=== PATIENT | male | born 1990 | race Asian ===

== ENCOUNTER 2020-04-13 13:45 | Emergency (ER) | payer MEDICAID ==
[~2020-04-13] VITALS: Ht 185.4 cm; Wt 77.1 kg
--- NOTE | 2020-04-13 14:06 | NUR ---
[email or web address], medical screening exam in progress
[2020-04-13] MEDS ORDERED: TDAP DIPH,PERTUSS,TET VAC/PF 0.5 ML DISP.SYRIN IM ONE ×2 (15:00→15:07)
[2020-04-13] MEDS ORDERED: NEOMY/BACITRA/POLYMYXIN B OINT UD PACKET TP ONE ×2 (15:15→15:18)
[2020-04-13] MEDS ORDERED: CEphaleXIN 250 MG CAPSULE PO ONE (15:15)
--- NOTE | 2020-04-13 15:17 | NUR ---
Patient discharged to home in stable condition. Written and verbal after care instructions given to patient. Patient verbalized understanding & compliance of instructions. Stressed follow up to come back to ER tomorrow so Dr Kay can recheck the wound or see your primary doctor or return to ER for worsening s/s.
[2020-04-13] MEDS ORDERED: CEphaleXIN 250 MG CAPSULE ONE (15:18)
== END 2020-04-13 15:17 | disposition home or self-care (01) ==
LOC: ER 13:49
DX: S60.450A Superficial foreign body of right index finger, initial encounter (principal); L08.9 Local infection of the skin and subcutaneous tissue, unspecified; W45.8XXA Other foreign body or object entering through skin, initial encounter; Y93.89 Activity, other specified; Y92.89 Other specified places as the place of occurrence of the external cause
CPT/HCPCS: 73140; 90715; A4663

== ENCOUNTER 2020-04-14 12:35 | Emergency (ER) | payer MEDICAID ==
[~2020-04-14] VITALS: Ht 185.4 cm; Wt 77.1 kg
--- NOTE | 2020-04-14 12:43 | NUR ---
Dr Kay at the bedside for MSE.
[2020-04-14] MEDS ORDERED: SULFAMETH/TRIMETH 800/160 MG TABLET PO ONE (12:45)
[2020-04-14] MEDS ORDERED: SULFAMETH/TRIMETH 800/160 MG TABLET ONE (12:52)
--- NOTE | 2020-04-14 12:54 | NUR ---
Patient discharged to home in stable condition. Written and verbal after care instructions given. Patient verbalizes understanding of instructions. Stressed follow up or return to ER for worsening s/s.
[2020-04-14 12:56] VITALS: BP 120/70
== END 2020-04-14 13:03 | disposition home or self-care (01) ==
LOC: ER 12:36
DX: S60.450D Superficial foreign body of right index finger, subsequent encounter (principal); L03.011 Cellulitis of right finger; W45.8XXD Other foreign body or object entering through skin, subsequent encounter
CPT/HCPCS: A4663

== ENCOUNTER 2020-04-30 21:50 | Emergency (ER) | payer MEDICAID ==
[~2020-04-30] VITALS: Ht 182.9 cm; Wt 81.6 kg
[2020-04-30] MEDS ORDERED: CEPH500C2 PO (22:22)
== END 2020-04-30 22:26 | disposition home or self-care (01) ==
LOC: ER 21:51
DX: S61.240D Puncture wound with foreign body of right index finger without damage to nail, subsequent encounter (principal); W45.8XXD Other foreign body or object entering through skin, subsequent encounter
CPT/HCPCS: A4663